=== PATIENT | female | born 2005 | race Two or more races ===

== ENCOUNTER 2024-11-20 19:55 | Emergency (ER) | payer MEDICAID, SELFPAY ==
[2024-11-20 19:58] VITALS: BMI 41.1
[2024-11-20 20:57] VITALS: BP 112/71; PULSE 92; RESP 16; TEMP 37.4; O2SAT 98
--- NOTE | 2024-11-20 21:36 | EDNOTE_ITS ---
Nausea/Vomit./Diarrhea-RME/HPI General Chief complaint: Nausea/Vomiting/Diarrhea Stated complaint: NAUSEA X1 WEEK Time Seen by Provider: 11/20/24 21:28 Arrival date/time: 11/20/24 19:55 19F with history of PCOS presents to ED with 1 week of intermittent N/V. Some burning epigastric pain, but not currently. Patient also denies any other pain including dysuria. Limitations: no limitations Related Data Previous Rx's ?Medication ?Instructions ?Recorded doxylamine 10 mg-pyridoxine (vit 1 tab PO QDAY #30 tab s 11/21/24 B6) 10 mg tablet,delayed release (Diclegis) Allergies Allergy/AdvReac Type Severity Reaction Status Date / Time Penicillins Allergy Verified 11/20/24 19:57 Review of Systems Review of Systems Systems Reviewed: All systems reviewed, normal except as documented Constitutional Constitutional: Reports system reviewed and no additional complaints, except as documented, Denies fever(s) and Denies headache(s) ENT Ears, Nose, Mouth, and Throat: Denies disequilibrium and Denies headache(s) Cardiovascular Cardiovascular: Reports system reviewed and no additional complaints, except as documented, Denies chest pain and Denies dyspnea Respiratory Respiratory: Reports system reviewed and no additional complaints, except as documented, Denies cough and Denies dyspnea Gastrointestinal Gastrointestinal: Reports system reviewed and no additional complaints, except as documented, Reports as per HPI, Reports abdominal pain (burning), Reports nausea and Reports vomiting Neurologic Neurologic: Reports system reviewed and no additional complaints, except as documented, Denies confusion, Denies disequilibrium and Denies headache(s) Psychiatric Psychiatric: Denies confusion Past Medical History Social History SMOKING STATUS: Never smoker ED Exam General Limitations: Present no limitations General appearance: Present alert and in no apparent distress Head Head exam: Present atraumatic Eye Eye exam: Present normal appearance, PERRL and EOMI ENT ENT exam: Present normal exam, normal oropharynx and mucous membranes moist Neck Neck exam: Present normal inspection, full ROM and trachea midline Chest Chest inspection: Present normal inspection and symmetric chest wall rise Respiratory Respiratory exam: Present normal lung sounds bilaterally Cardiovascular Cardiovascular exam: Present regular rate, normal rhythm and normal heart sounds Abdominal Exam Abdominal exam: Present soft and normal bowel sounds Extremities Exam Extremities exam: Present normal inspection and full ROM Back Exam Back exam: Present normal inspection and full ROM Neurological Exam Neurological exam: Present alert, oriented X3 and CN II-XII intact Psychiatric Psychiatric exam: Present normal affect and normal mood Skin Skin exam: Present warm, dry, intact and normal color Course Quality Measures none Orders Category Date Time Status US OB <= 14 weeks fetus Stat Exams 11/20/24 23:36 Completed US OB transvaginal Stat Exams 11/20/24 22:29 Stop Req Beta HCG,Quantitative Stat Lab 11/20/24 22:59 Completed CBC Stat Lab 11/20/24 22:59 Completed CMP [Comprehensive Metabolic Panel] Stat Lab 11/20/24 22:59 Completed Drug Screen,Urine Stat Lab 11/20/24 21:47 Completed HCG Qualitative,Urine Stat Lab 11/20/24 21:47 Completed Urinalysis, C/S if Indicated Stat Lab 11/20/24 21:47 Completed Ondansetron Odt [Zofran Odt] Med 11/20/24 21:28 Discontinued 4 mg PO X1 ONE Vital Signs Vital signs: Vital Signs Temperature 99.4 F 11/20/24 20:57 Pulse Rate 92 11/20/24 20:57 Respiratory Rate 16 11/20/24 20:57 Blood Pressure 112/71 11/20/24 20:57 Pulse Oximetry (%) 98 11/20/24 20:57 Oxygen Delivery Method Room Air 11/20/24 20:57 O2 at 98% on RA and WNLs Nausea/Vomiting/Diarrhea MDM Narrative MDM Narrative:: 19F with history of PCOS presents to ED with 1 week of intermittent N/V. Some burning epigastric pain, but not currently. Patient also denies any other pain including dysuria. Physical exam reveals well-appearing female. Patient is afebrile, calm, and alert. UA HCG positive. US reveals empty gestational sac. Patient confirms on vaginal bleeding or pelvic pain/cramping. Minimal leukocytosis. CMP unremarkable. UA clean. Beta HCG around 50k and WNLs. Drapery Cutter given. Nausea improved with meds. Patient data External records reviewed:: None Clinical information provided by:: patient Social determinants that could affect healthcare access:: none Patient has the following chronic illnesses:: PCOS How is presenting disease/condition affected by chronic disease/condition?: exacerbated by Evaluation data The following diagnostics were reviewed and interpreted by me:: lab results Lab and/or radiology exams considered but not ordered:: ordered Interpretation Summary: above Medications / Prescriptions Medications / Prescriptions considered but not ordered:: ordered Medication administrations:: Medication Administration History Discontinued Medications Ondansetron HCl (Ondansetron Odt 4 Mg Tabrap) 4 mg PO X1 ONE; Protocol Stop: 11/20/24 21:29 Last Admin: 11/20/24 21:46 Dose: 4 mg Documented By: CARLOS EDUARDO above Consultations Consultation(s) initiated? (list below): No Diagnosis Nausea Differential Diagnosis: traveler's diarrhea, food poisoning, gastroenteritis, clostridium difficile infection, drug-induced nausea and vomiting, dehydration and other (N/V, ) Most likely diagnosis given after review of the tests above:: N/V and Admission Indicated Admission indicated?: not indicated Admission Request Was there a request for admission?: No Disposition Plan Disposition Plan: Discharge Discharge Attestation Discharge Attestation: The patient and all family members were given an opportunity to ask questions and understood the discharge instructions. Discharge instructions specifically effects, indications for sooner follow up or return to the emergency department, and the expected course of current diagnosis. Patient condition: Stable Discharge Plan Plan Patient Disposition: HOME (Self Care) Discharge Disposition comment: Stable Prescriptions/Referrals Prescriptions/Med Rec: New doxylamine-pyridoxine (vit B6) [Diclegis] 10-10 mg tablet,delayed release (/EC) 1 tab PO QDAY Qty: 30 0RF Referrals: Venecia Bernabe FNP [Primary Care Provider] - In 1 week Problem List Clinical Impression: , Nausea and vomiting Patient/Caregiver Discharge Instructions Education Materials: Your First Trimester ..., : Common Questions Additional Instructions: Please follow-up with PCP/OBYGN within 24-48 hours and return immediately if symptoms worsen. Establish care with OBGYN so you can have all the testing for first OB appt. Beta HCG here was 48,284. Print Language: Slovenian Stand Alone Forms: Patient Portal Info Letter RANDI/BRISA Supervising Physician WING Supervising Physician: Dr. Campuzano
[2024-11-20] MEDS: ONDANSETRON ODT 4 MG TABRAP PO (21:46)
[2024-11-20 21:55] LABS: Collection Type, Urine Clean Catch
[2024-11-20 22:05] LABS: HCG Qualitative,Urine Positive
[2024-11-20 22:06] LABS: Amorphous Crystals,Urine Present (Absent); Bacteria,Urine Rare; Bilirubin,Urine Negative (Negative); Blood,Urine Negative (Negative); Clarity,Urine Clear (Clear/Hazy); Color,Urine Lt-Yellow (Lt Yel-Yel); Culture Indicated,Urine Not Indicated; Glucose, Urine Negative (Negative); Ketones,Urine Negative (Negative); Leukocyte Esterase,Urine Positive (Negative); Nitrite,Urine Negative (Negative); PH,Urine 6.5 (5.0-7.0); Protein,Urine Negative (Neg - Trace); RBC,Urine < 1 /hpf (0-3); Specific Gravity,Urine 1.011 (1.001-1.035); Squamous Epithelial Cell,Urine 3 /hpf (0-5); Urobilinogen,Urine Negative mg/dL (0.0-1.0); WBC,Urine 2 /hpf (0-5)
[2024-11-20 22:56] LABS: Amphetamine/Methamp Scrn,U Negative (Negative); Barbiturate Screen,Urine Negative (Negative); Benzodiazepines Screen,Urine Negative (Negative); Benzoylecgonine Screen, Ur Negative (Negative); Fentanyl Screen,Urine Negative (Negative); Opiate Screen,Urine Negative (Negative); THC Screen,Urine Negative (Negative)
[2024-11-20 23:29] LABS: Basophils # (Auto) 0.1 Thou/mm3 (0.0-0.2); Basophils % (Auto) 1 % (0-2.5); Eosinophils # (Auto) 0.0 Thou/mm3 (0.0-0.5); Eosinophils % (Auto) 0 % (0-10); Hematocrit 37.6 % (36.0-46.0); Hemoglobin 12.7 g/dL (12.0-16.0); Immature Granulocytes Auto 0.03 Thou/mm3 (0.00-0.00); Lymphocytes # (Auto) 2.8 Thou/mm3 (1.0-4.8); Lymphocytes % (Auto) 21 % (10-50); Mean Corpuscular HGB Conc 33.8 g/dl (31.0-37.0); Mean Corpuscular Hemoglobin 29.8 pg (25.0-35.0); Mean Corpuscular Volume 88 fL (80-100); Monocytes # (Auto) 0.9 Thou/mm3 (0.0-0.8); Monocytes % (Auto) 7 % (0-12); Neutrophils # (Auto) 9.3 Thou/mm3 (1.8-7.7); Neutrophils % (Auto) 71 % (37-80); Nucleated Red Blood Cell # 0.00 Thou/mm3 (0.00-0.00); Nucleated Red Blood Cell % 0 /100 WBC (0); Platelet Count 311 Thou/mm3 (140-440); RDW Standard Deviation 42.2 fL (36.4-46.3); Red Blood Count 4.26 Miln/mm3 (4.00-5.20); White Blood Count 13.1 Thou/mm3 (4.5-11.0)
--- NOTE | 2024-11-20 23:36 | XR_ITS ---
Examination: Complete OB ultrasound, less than 14 weeks, transabdominal Date and time of exam: November 20, 2024, 11:35 PM Indications: Nausea pelvic pain beginning one week ago Technique: Obstetrical ultrasound images less than 14 weeks performed via transabdominal imaging Findings: Uterus 8.1 cm, intrauterine gestational sac 1.7 cm correspondences 6 weeks 4 days gestational age. No pole, no cardiac activity Right ovary 2.9 cm arterial flow 16 mm follicular cyst Left ovary obscured by bowel gas Impression: Empty intrauterine gestational sac corresponding to 6 weeks 4 days gestational age Recommend short-term follow-up pelvic sonography to exclude embryonic demise
[2024-11-21 00:19] LABS: Alanine Aminotransferase 12 U/L (10-49); Albumin, Serum 4.5 gm/dL (3.5-5.0); Albumin/Globulin Ratio 1.8 (1.2-2.2); Alkaline Phosphatase 60 U/L (46-116); Anion Gap 12 (7-16); Aspartate Amino Transferase 16 U/L (0-34); BUN/Creatinine Ratio 10 Ratio (12-20); Bilirubin,Total 0.5 mg/dL (0.3-1.2); Blood Urea Nitrogen 6 mg/dL (9-23); Calcium 9.7 mg/dL (8.3-10.6); Calcium (Corrected) 9.7 mg/dL (8.5-10.1); Carbon Dioxide 24.2 mMol/L (20.0-31.0); Chloride 105 mMol/L (98-107); Creatinine (Component) 0.6 mg/dL (0.6-1.3); Estimated Creatinine Clearance 180.3 mL/min (>60); Globulin 2.5 gm/dL (2.3-3.5); Glucose 101 mg/dL (74-106); Osmolality,Calculated 278 (275-295); Potassium 3.7 mMol/L (3.4-5.1); Sodium 141 mMol/L (136-145); Total Protein 7.0 gm/dL (5.7-8.2); eGFR > 60 See Note
[2024-11-21 00:29] LABS: Beta HCG,Quantitative 45284 mIU/mL (<5.0)
== END 2024-11-21 00:43 | disposition home or self-care (01) ==
PROVIDERS: Physician Assistant; Emergency Provider Emergency Medicine; PCP Nurse Practitioner Family
DX: O21.9 Vomiting of pregnancy, unspecified (principal)
CPT/HCPCS: 36415; 76801; 80053; 80307; 81001; 81025; 84702; 85025; 99283; Q0162